=== PATIENT | female | born 2005 | race Caucasian/White ===

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

== ENCOUNTER 2024-12-12 13:18 | Outpatient (AMB) | payer OTHER, SELFPAY ==
[2024-12-12 13:28] VITALS: BMI 25.4
--- NOTE | 2024-12-12 13:28 | MHC.OFFVIS ---
Vital Signs 12/12/24 13:28 Height 5 ft Weight 130 lb BMI 25.4 Intake Visit Reasons: RT & LT toe cellulitis Intake Note: Kim is a 19 year old female who presents today as a new patient for an evaluation of her bilateral hallux cellulites. Patient reports she has had the cellulites on her right hallux for almost 1 year and her left hallux cellulites has been going on for a couple of weeks. She was [place] [facility] [place] she has not tried any other treatments at this time. Allergies No Known Allergies (No Known Allergies*) Allergy (Verified 12/12/24 13:28) HPI HPI RT & LT toe cellulitis: Details: 19 y/o female seen today for initial evaluation of bilateral ingrown toe nails, right foot worse than left. She states she has been dealing with ingrown nails since this past March. It 1st began with the right foot, worsened to her left foot. She saw her primary care doctor referred her to a machine hand however the patient was unable to make a machine hand appointment at that time. She recently went to the emergency room and was prescribed oral antibiotics, which he has been taking for the past 8 days, and has 2 more days left. She endorses pain to both of her toes, denies seeing any purulent drainage. Denies a history of ingrown nails. 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 Review of Systems Const All systems reviewed & are unremarkable except as noted in HPI and below Physical Exam Vital Signs: BMI result Body Mass Index 25.4 Extrem Other: *Bilateral Lower Extremity Focused Exam Vascular: DP/PT 2/4, CFT<3s to digits, TG warm to cool, moderate edema to the right hallux medial and lateral border with purple discoloration to the distal digit, mild edema to the lateral border of left hallux Derm: (+) erythema without purulent drainage to the medial and lateral border of the right hallux and lateral border left hallux with scant serous drainage. Neuro: Protective sensation grossly intact to bilateral lower extremities. MSK: Moderate tenderness on palpation of the medial and lateral borders of the right hallux, and lateral border of the left hallux. Office Procedures AMB Debridement/Avulsion Podia Details: Procedure: Total nail avulsion right hallux Indication: Right Hallux Ingrown toenail Anesthesia: Digital block with 10 cc 1% lidocaine (without epinephrine) Description: The digit was prepped using betadine. A freer elevator was used to free the the entire nail from the nail plate. It was then removed in 1 piece. The medial and lateral borders had hyper granuloma tissue which was excised using a rongeur. Excessive bleeding was noted and was cauterized using silver nitrate. Manual pressure was applied. It was then dressed using antibiotic ointment, 2x2 gauze, and Coban. Tolerance: Patient tolerated procedure well, no immediate complications. 80407 Partial/Total nail avulsion (1 nail) 18796 - Chemical Cauterization of Granulation Tissue Procedure code (CPT) selection complete AMB Debridement/Avulsion Podia Details: Procedure: Partial Nail Avulsion lateral border Indication: Left Hallux Ingrown toenail Anesthesia: Digital block with 5 cc 1% lidocaine (without epinephrine) Description: The digit was prepped using betadine. A freer elevator was used to free the border of the nail plate. A nail splitter was used to cut approximately 10-15% of the nail. The offending nail was removed, and a curette was used to inspect for any loose spicules. The wound was packed with silvadene-gauze strip, 4x4 gauze, and coban. Tolerance: Patient tolerated procedure well, no immediate complications. [id number] Partial/Total nail avulsion (1 nail) Procedure code (CPT) selection complete Office Meds lidocaine HCl 10 mg/mL (1 %) injection solution Performing Provider: Terell De La Cruz DPM [place]forming [place] [facility] [place] [facility] Administered by: Terell De La Cruz DPM on 12/12/24 14:49 Dose Route Admin Location Dispensed Lot Number Expiration Date [facility] [place] 10 mL subcut 10 mL [id number] Total Dispensed Waste 10 mL 0 % Triple Antibiotic 3.5 mg-400 unit-5,000 unit topical ointment packet Performing Provider: Terell De La Cruz DPM Performing Location: [facility] [place] [facility] Administered by: Terell De La Cruz DPM on 12/12/24 14:49 Dose Route Admin Location Dispensed Lot Number Expiration Date [facility] [place] Door [place] 1 appl topical 1 appl [id number] PADAGIS povidone-iodine 10 % topical swab Performing Provider: Terell De La Cruz DPM Performing Location: [facility] [place] [facility] Administered by: Terell De La Cruz DPM on 12/12/24 14:49 Dose Route Admin Location Dispensed Lot Number Expiration Date [facility] [place] Side Door Man 1 appl topical 1 appl [id number] [employer] [place]. ethyl chloride 100 % topical spray Performing Provider: Terell De La Cruz DPM Performing Location: [facility] [place] [facility] Administered by: Terell De La Cruz DPM on 12/12/24 14:49 Dose Route Admin Location Dispensed Lot Number Expiration Date [facility] [place] Side Door Man 1 appl topical 116 mL [id number] [email or web address] [place]. lidocaine HCl 10 mg/mL (1 %) injection solution Performing Provider: Terell De La Cruz DPM Performing Location: [facility] [place] [facility] Administered by: Terell De La Cruz DPM on 12/12/24 15:41 Dose Route Admin Location Dispensed Lot Number Expiration Date [facility] [place] Side Door Man 5 mL subcut 5 mL [id number] Total Dispensed Waste 5 mL 0 % Triple Antibiotic 3.5 mg-400 unit-5,000 unit topical ointment packet Performing Provider: Terell De La Cruz DPM Performing Location: [facility] [place] [facility] Administered by: Terell De La Cruz DPM on 12/12/24 15:41 Dose Route Admin Location Dispensed Lot Number Expiration Date [facility] [place] Side Door Man 1 appl topical 1 appl [id number] PADAGIS povidone-iodine 10 % topical swab Performing Provider: Terell De La Cruz DPM Performing Location: [facility] [place] [facility] Administered by: Terell De La Cruz DPM on 12/12/24 15:41 Dose Route Admin Location Dispensed Lot Number Expiration Date [facility] [place] Side Door Man 1 appl topical 1 ea [id number] ethyl chloride 100 % topical spray Performing Provider: Terell De La Cruz DPM Performing Location: [facility] [place] [facility] Administered by: Terell De La Cruz DPM on 12/12/24 15:41 Dose Route Admin Location Dispensed Lot Number Expiration Date [facility] [place] Side Door Man 1 appl topical 116 mL [id number] [employer].. Assessment & Plan Assessment & Plan (1) Paronychia of great toe of right foot: Code(s): L03.031 - Cellulitis of right toe Category: Medical Plan: Discussed the etiology of per ingrown nail infection. Instructed patient to complete her oral antibiotic prescription Recommended total nail avulsion right hallux due to the extensive granulomatous tissue and infection. The patient consented to the procedure, and a total nail avulsion was performed of the right hallux. A handout was dispensed for wound care instructions to perform at home. Rx ibuprofen 800 mg t.i.d. Follow up in 2 weeks (2) Paronychia of great toe, left: Code(s): L03.032 - Cellulitis of left toe Category: Medical Plan: Partial nail avulsion left lateral hallux nail border. A handout was dispensed for wound care instructions to perform at home. Orders: Orders AMB Debridement/Avulsion Podiatry Today L03.031 - Cellulitis of right toe, L03.032 - Cellulitis of left toe AMB Debridement/Avulsion Podiatry Today L03.031 - Cellulitis of right toe, L03.032 - Cellulitis of left toe Medications: New ibuprofen 800 mg PO Q8H PRN 30 tabs 1RF pain (scale score 4-6) Coding Level of Care Code New Pt Level 4 (78162) Diagnoses Paronychia of great toe of right foot L03.031 Paronychia of great toe, left L03.032 CPT Codes Skin Debridement - CPT: 34026 Partial/Total nail avulsion (1 nail) ([id number]) Skin Debridement - CPT: 12162 - Chemical Cauterization of Granulation Tissue ([id number]) Skin Debridement - CPT: 34049 Partial/Total nail avulsion (1 nail) ([id number]) Time Spent (min) 30
== END 2024-12-12 14:20 | disposition home or self-care (01) ==
PROVIDERS: Visit Provider Student in an Organized Health Care Education/Training Program
DX: L03.031 Cellulitis of right toe (principal); L03.032 Cellulitis of left toe
CPT/HCPCS: 11730; 99204

== ENCOUNTER → 2024-12-12 13:18 | Outpatient (BNVA) | payer MEDICAID, SELFPAY | PROVIDERS: Visit Provider Student in an Organized Health Care Education/Training Program | DX: L03.031 Cellulitis of right toe (principal); L03.032 Cellulitis of left toe; L60.0 Ingrowing nail | CPT/HCPCS: 11730; 11732; 99202; J2003 ==

== ENCOUNTER 2024-12-27 13:27 | Outpatient (AMB) | payer OTHER, SELFPAY ==
--- NOTE | 2024-12-27 13:37 | MHC.OFFVIS ---
Vital Signs 12/27/24 13:38 Height 5 ft Weight 130 lb BMI 25.4 Intake Visit Reasons: RT & LT toe cellulitis Intake Note: Kim is a 19 year old female who presents today for a follow up on her bilateral cellulites. At her last visit a total nail avulsion of the right hallux and a partial nail avulsion of the left hallux was performed. Patient states everything is going welland has no concerns at this time. She denies experiencing any pain at this time. Allergies No Known Allergies (No Known Allergies*) Allergy (Verified 12/12/24 13:28) HPI HPI RT & LT toe cellulitis: Details: 19 y/o female seen today for initial evaluation of bilateral ingrown toe nails, right foot worse than left, status post right total nail avulsion and left partial nail avulsion. She had pain for about 3 days which she treated with ibuprofen. She completed her antibiotics. She since then has notice that toes no longer pain and she has not noticed any signs infection. She is still doing the soaks daily for toes and is covering both nails with antibiotic ointment and Band-Aids. History: She states she has been dealing with ingrown nails since this past March. It 1st began with the right foot, worsened to her left foot. She saw her primary care doctor referred her to a ethics instructor however the patient was unable to make a ethics instructor appointment at that time. She recently went to the emergency room and was prescribed oral antibiotics, which he has been taking for the past 8 days, and has 2 more days left. She endorses pain to both of her toes, denies seeing any purulent drainage. Denies a history of ingrown nails. 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 Review of Systems Const All systems reviewed & are unremarkable except as noted in HPI and below Physical Exam Vital Signs: BMI result Body Mass Index 25.4 Extrem Other: *Bilateral Lower Extremity Focused Exam Vascular: DP/PT 2/4, CFT<3s to digits, TG warm to cool, no edema to bilateral hallux. Derm: no erythema, no drainage, no clinical signs flexion bilateral toes. Left hallux lateral nail border well healed, right hallux medial nail border with superficial ulcer fibrous tissue buildup. Neuro: Protective sensation grossly intact to bilateral lower extremities. MSK: No tenderness on palpation of bilateral hallux nail borders. Assessment & Plan Assessment & Plan (1) Paronychia of great toe of right foot: Code(s): L03.031 - Cellulitis of right toe Category: Medical Plan: Medial border healing gradually. Instructed to continue applying antibiotic ointment and Band-Aid daily. May require wound debridement and delayed closure. Follow up in 2 weeks. (2) Paronychia of great toe, left: Code(s): L03.032 - Cellulitis of left toe Category: Medical Plan: appears healed. discontinue local wound care Coding Level of Care Code Est Pt Level 3 (33309) Diagnoses Paronychia of great toe of right foot L03.031 Paronychia of great toe, left L03.032 Time Spent (min) 15
[2024-12-27 13:38] VITALS: BMI 25.4
--- OUTSIDE RECORDS SUMMARY | 2024-12-28 06:26 | XMS_ITS | Clinical Summary ---
Author Organization [facility] Address [address] [place] [address] Phone Care Team Providers Care Exhibit Specialist Name Role Phone Edita Genao HEEL GUMMER Primary Care Provider [phone] Jessica Marcelo DO Unavailable [phone] Allergies No known active allergies Medications SIMPESSE 0.15 mg-30 mcg (84)/10 mcg (7) 3MPkIndications:En counter for surveillance of contraceptive pills TAKE 1 TABLET BY MOUTH EVERY DAY 91 tablet 3 5 Active Active Problems Problem Noted Date Diagnosed Date Upper back pain 09/08/2023 Resolved Problems Problem Noted Date Diagnosed Date Resolved Date Heart murmur 08/06/2020 03/11/2022 Assessment & Plan (08/06/2020 11:04 AM EDT): Soft systolic murmur on exam today. Re-examined with Dr. Horacio Juarez, feel this to be benign. She is not symptomatic of any signs of valvular heart disease. No additional workup at this time. Grief 08/06/2020 03/11/2022 Assessment & Plan (08/06/2020 11:55 AM EDT): Her father passed by suicide [place]2020. We discussed ways of finding an outpatient therapist. I did put referral to MUD ANALYSIS OPERATOR. I did call the [facility] at [facility] [phone] for advice regarding other grief support options in the area, she notes she really would not want to participate in any group sessions. Encounters Date Type Department Care Team Description 11/07/2024 [facility] RISK SCORES SYSTEM GENERATED External System Generated Encounter [address] [place] [address] Unknown, Unknown, from Last 3 Months Immunizations Immunization Administration Dates Next Due COVID-19 (Pre-12/01) Pfizer Vaccine, mRNA, PF 07/18/2020,06/27/2020 DTaP 12/02/2007, 6,08/26/2004,05/21,03/12/2004 HPV,quadrivalent 06/05/2017 HPV9 08/20/2020,06/05/2017 Hepatitis A, Adult 04/28/2023 Hepatitis A, ped/adol, 2 dose 08/20/2020 Hepatitis B, unspecified formulation 08/27/2004, 01/01/2004,2003 Hib, unspecified formulation 03/07/2005, 08/27/2004,05/21/2004,03/12 IPV 12/02/2007, 6,05/21/2004,03/12 MMR 12/02/2007,12/18/2004 Meningococcal MCV4P 08/06/2020,02/27/2015 Pneumococcal conjugate, PCV 7 05/20/2005 ,08/27/2004,05/21/2004,03/12 Tdap 08/06/2020,12/13/2012 Varicella 12/02/2007,12/18/2004 Family History Medical History Relation Comments Hypertension Father Hypothyroidism Father Suicide Father Gestational diabetes Mother Hypertension Mother Multiple sclerosis Mother Relation Status Comments Father Mother Alive Social History Tobacco Use Types Packs/Day Years Used Date Smoking Tobacco: Never Smokeless Tobacco: Never Tobacco Cessation:Counseling Given: Not Answered Alcohol Use Standard Drinks/Week Comments No 0 (1 standard drink = 0.6 oz pur e alcohol) Child or Family Care Answer Date Record ed Do you have problems with on e of the following making it difficult for you to work, study, or receive health care? No 08/06/2020 Education Answer Date Recorded Are you interested in more education? Not on cyndi e 08/07/2022 Are you concerned about learning? Not on file 08/07/2022 No 08/07/2022 No 08/07/2022 Food Answer Date Recorded Within the past 6 months we worried whether our food would run out before we got money to buy more. Never True 08/06/2020 Within the past 6 months the food we bought just didn't last and we didn't have enough money to get more. Never True Residential Stability Answer Date Recor ded What is your housing situation today? I have michelle sing 08/06/2020 How many times have you move d in the past 12 months? Zero (I did not move) 08/06/2020 06 Are you worried that in t he next 2 months, you may not have your own housing to live in? No 08/06/2020 Paying for Meds Answer Date Recorded Do you have trouble paying for medicines? No 08/06/2020 Paying Utility Bills Answer Date Record ed Do you have trouble paying your heating or elect ricity bill? No 08/06/2020 Transportation Answer Date Recorded Has the lack of transportati on kept you from medical appointments or from getting medications? No 08/06/2020 Unemployment Answer Date Recorded Are you currently unemployed or working on a part-time or temporary basis, and looking for work? No 08/06/2020 Digital Access Answer Date Recorded No 07/05/2022 No 07/05/2022 Reliable internet access at home? Not on file 07/05/2022 Device with a working camera? Not on file Comments Unknown Sex and Gender Information Value Date Recorded Sex Assigned at Not on file Legal Sex Female 2:06 PM EST Gender Identity Not on file Sexual Orientation Not on file Last Filed Vital Signs Vital Sign Reading Time Taken Comments Blood Pressure 118/72 03/15/2024 3:12 PM EST Pulse 103 03/15/2024 3:12 PM EST Temperature 36.4 C (97.6 F) 03/15/2024 3:12 PM EST Respiratory Rate - - Oxygen Saturation 99% 03/15/2024 3:12 PM EST Inhaled Oxygen Concentration - - Weight 64 kg (141 lb) 03/15/2024 3:12 PM EST Height 153.7 cm (5' 0.5 ) 09/28/2023 8:46 AM EDT Body Mass Index 27.08 09/28/2023 8:46 AM EDT Plan of Treatment Health Maintenance Due Date Last Done Comments CHLAMYDIA SCREENING 2019 MENINGOCOCCAL VACCINES (B) (1 of 2 - Standard) 2019 ADOLESCENT UNIVERSAL LIPID SCREENING 11/13/2020 HEPATITIS C SCREENING 11/13/2021 HIV ONE-TIME SCREENING (18-65 YEARS) 11/13/2021 DEPRESSION SCREENING 04/27/2024 04/28/2023 INFLUENZA VACCINE (#1) 2024 COVID-19 VACCINE ( season) 2024 07/18/2020, 06/27/2020 PAP SMEAR 11/13/2024 SMOKING Hx and SMOKELESS TOBACCO SCREENING 03/15/2025 03/15/2024 Adult Td,Tdap Booster 08/06/2030 08/06/2020, 013 COMBINED DTaP,Tdap,Td (7 - Td or Tdap) 08/06/2030 08/06/2020, 12/13/2012, 12/02/2007, Additional history exists HIB VACCINES Completed 03/07/2005, 08/09, 05/21/2004, Additional history exists PNEUMOCOCCAL VACCINES (0-49 years) Aged Out 05/20/2005, 08/27/2004, 05/21/2004, Additional history exists No longer eligible based on patient's age to complete this topic MMR VACCINES Completed 12/02/2007, 12/18/2004 MENINGOCOCCAL VACCINES (ACWY) Completed 08/06/2020, 02/27/2015 HPV VACCINES Completed 08/20/2020, 05/11, 06/05/2017 HEPATITIS A VACCINES Completed 04/28/2023, 08/21/19 21 Medical Devices Not on file Insurance [facility]CO [facility] Care Teams Exhibit Specialist Relationship Specialty Start Date End Date Edita Genao Anh, HEEL GUMMER [address] [facility] [address] [place] [address] [email or web address] PCP - General Family Medicine 03/15/18 Jessica Marcelo DO [address] [place] [address] [address] [place] [address] [email or web address] Insurance Assigned Provider 12/24/24 Additional Source Comments The information contained in this document represents components of the legal health record. It is not the complete legal health record.[facility]
--- OUTSIDE RECORDS SUMMARY | 2024-12-28 06:26 | XMS_ITS | Encounter Summary ---
Author Organization [facility] Address [address] [place] [phone] Phone Care Team Providers Care Education And Development Manager Name Role Phone Edita Genao HAIRSPRING I INSPECTOR Primary Care Provider [phone] Jessica Marcelo DO Unavailable [phone] Encounter Details Date Type Department Care Team (Late st Contact Info) Description 01/28/2024 Procedure Pass OR Admitting Dept - Virtual Department [address] [place] [address] Social History Tobacco Use Types Packs/Day Years Used Date Smoking Tobacco: Never Smokeless Tobacco: Never Alcohol Use Standard Drinks/Week Comments No 0 [...] your housing situation today? I have michelle evans 08/06/2020 How many times have you move [...] on file Sexual Orientation Not on file documented as of this encounter Plan of Treatment Not on file documented as of this encounter Visit Diagnoses Not on filedocumented in this encounter Additional Health Concerns Assessment Noted Time PHQ-2 Depression Total Score: 0 04/28/19 24 11:09 AM EDT documented as of this encounter Care Teams Education And Development Manager Relationship Specialty Start Date End Date Edita Genao Anh, FABRICIO [address] [address] [email or web address] PCP - General Family Medicine 03/15/18 Jessica Marcelo DO [address] [place] [phone] Insurance Assigned Provider 12/24/24 documented as of this encounter Additional Source Comments The information contained in this document represents components of the legal health record. It is not the complete legal health record.[facility]
--- OUTSIDE RECORDS SUMMARY | 2024-12-28 06:26 | XMS_ITS | Clinical Summary ---
Author Organization [address] [facility] Address [address] [place] [address] Phone Care Team Providers Care Occupational Therapist'S Assistant Name Role Phone Unavailable Primary Care Provider Unavailabl e Encounters Date Type Department Care Team Description 12/09/[address] [facility] [address] [facility] [address] [place] [address] Sarwat Dial DPM from Last 3 Months Social History Tobacco Use Types Packs/Day Years Used Date Smoking Tobacco: Never Assessed Comments Unknown Sex and Gender Information Value Date Recorded Sex Assigned at Not on file Legal Sex Female 8:54 AM EDT Gender Identity Not on file Sexual Orientation Not on file Plan of Treatment Health Maintenance Due Date Last Done Comments Gonorrhea/Chlamydia Screening 2003 HPV Vaccines (1 - 3-dose series) 11/13/2018 Meningococcal B Vaccine (1 o f 2 - Standard) 2019 DTaP,Tdap,and Td Vaccines (1 - Tdap) 11/13/2022 Hepatitis B Vaccines (1 of 3 - 19+ 3-dose series) 11/13/2022 Depression Screening 02/10/2024 COVID-19 Vaccine (1 - 2024-2 6 season) 2024 Influenza Vaccine (#1) 2024 Cervical Cancer Screening: P ap Smear 11/13/2024 Annual Well Child Visit (3-2 1 years old) 12/09/2024 HIV Screening 12/09/2024 Hepatitis C Screening 12/09/2024 Social Influencers of Health Screening 12/09/2024 RSV Immunization Adult Patie nts (1 - 1-dose 75+ series) 11/13/2078 HIB Vaccines Aged Out No longer eligi ble based on patient's age to complete this topic Hepatitis A Vaccines Aged Out No long er eligible based on patient's age to complete this topic IPV Vaccines Aged Out No longer eligi ble based on patient's age to complete this topic MMR Vaccines Aged Out No longer eligi ble based on patient's age to complete this topic Meningococcal ACWY Vaccine Aged Out N o longer eligible based on patient's age to complete this topic Pneumococcal Vaccine: Pediat rics (0 to 5 Years) and At-Risk Patients (6 to 49 Years) Aged Out No longer eligible b ased on patient's age to complete this topic RSV Immunization Patients Un alia 20 months Aged Out No longer eligible b ased on patient's age to complete this topic Varicella Vaccines Aged Out No longer eligible based on patient's age to complete this topic
== END 2024-12-27 13:55 | disposition home or self-care (01) ==
LOC: HO.HPODS 13:27
PROVIDERS: Visit Provider Student in an Organized Health Care Education/Training Program
DX: L03.031 Cellulitis of right toe (principal); L03.032 Cellulitis of left toe
CPT/HCPCS: 99213

== ENCOUNTER 2025-01-16 11:21 | Outpatient (AMB) | payer OTHER, SELFPAY ==
--- NOTE | 2025-01-16 11:34 | A.OFFVIS_ITS ---
Vital Signs 01/16/25 11:35 Height 5 ft Weight 130 lb BMI 25.4 Intake Visit Reasons: RT & LT toe cellulitis Intake Note: Kim is a 19 year old female who presents to the office today for a 2 week follow up for RT & LT toe cellulitis. At previous visit it was noted that the Medial border is healing gradually. Pt states her left toe has significantly improved and seems like it has fully healed however the right toe seems like it is still in the healing process. She denies experiencing pain at this time Allergies No Known Allergies (No Known Allergies*) Allergy (Verified 01/16/25 11:35) HPI HPI RT & LT toe cellulitis: Details: 19 y/o female seen today for 2 week follow up evaluation of bilateral ingrown toe nails, right foot worse than left, status post right total nail avulsion and left partial nail avulsion. No longer having any pain. Is concerned about her right hallux nail appearance. History: She states she has been dealing with ingrown nails since this past March. It 1st began with the right foot, worsened to her left foot. She saw her primary care doctor referred her to a bull gang supervisor however the patient was unable to make a bull gang supervisor appointment at that time. She recently went to the emergency room and was prescribed oral antibiotics, which he has been taking for the past 8 days, and has 2 more days left. She endorses pain to both of her toes, denies seeing any purulent drainage. Denies a history of ingrown nails. Social: - in college - works in a restaurant [facility] Medical History (Updated 12/12/24 @ 15:52 by Terell De La Cruz DPM) Occasional use of marijuana Mixed anxiety depressive disorder Family History (Updated 04/17/22 @ 08:13 by Elis Marc NP) Father No problems noted. Review of Systems Const All systems reviewed & are unremarkable except as noted in HPI and below Physical Exam Vital Signs: BMI result Body Mass Index 25.4 Extrem Other: *Bilateral Lower Extremity Focused Exam Vascular: DP/PT 2/4, CFT<3s to digits, TG warm to cool, no edema to bilateral hallux. Derm: no erythema, no drainage, no clinical signs flexion bilateral toes. Left hallux lateral nail border well healed, right hallux dorsal nail medial nail border with hyperkeratotic scab. Neuro: Protective sensation grossly intact to bilateral lower extremities. MSK: No tenderness on palpation of bilateral hallux nail borders. Assessment & Plan Assessment & Plan (1) Paronychia of great toe of right foot: Code(s): L03.031 - Cellulitis of right toe Category: Medical Plan: * Recommended applying topical moisturizer * Educated on proper nail cutting technique to avoid ingrowns in the future * Follow up as needed (2) Paronychia of great toe, left: Code(s): L03.032 - Cellulitis of left toe Category: Medical Plan: * Resolved Coding Level of Care Code Est Pt Level 3 (55604) Diagnoses Paronychia of great toe of right foot L03.031 Paronychia of great toe, left L03.032 Time Spent (min) 15
[2025-01-16 11:35] VITALS: BMI 25.4
== END 2025-01-16 11:42 | disposition home or self-care (01) ==
LOC: HO.HPODS 11:22
PROVIDERS: Visit Provider Student in an Organized Health Care Education/Training Program
DX: L03.031 Cellulitis of right toe (principal); L03.032 Cellulitis of left toe
CPT/HCPCS: 99213